=== PATIENT | male | born 1965 | race Caucasian/White ===

== ENCOUNTER 2018-05-08 17:29 | Inpatient (IN) | payer MEDICAID ==
[~2018-05-08] VITALS: Ht 190.5 cm; Wt 121.1 kg
[~2018-05-08 17:29] MED LIST: DIVA500T52 PO; DSS100 PO; FLUO-191 PO; MUPI1OIN4 NS; NALT50TA6 PO; OLAN10TA22 PO; OMEP20 PO; RIVA20TA PO
[2018-05-08 19:10] VITALS: BP 132/84
[2018-05-08] MEDS ORDERED: PNEUMOCOCCAL VACCINE POLYVALENT 0.5 ML VIAL [PPSV23] IM ONE (20:45)
[2018-05-08] MEDS ORDERED: ZOLPIDEM TARTRATE 10 MG TABLET PO PRN (23:00)
[2018-05-08] MEDS ORDERED: HALOPERIDOL 5 MG TABLET PO PRN (23:00)
[2018-05-09 04:05] VITALS: BP 123/70
[2018-05-09] MEDS: LORazepam 2 MG TABLET PO PRN (04:42)
[2018-05-09] MEDS ORDERED: PETROLATUM,WHITE 71 GM JELLY TP PRN (06:30)
[2018-05-09] MEDS ORDERED: ALBUTEROL SULFATE HFA 90 MCG/PUFF 8 GM INHALER IH PRN (06:30)
[2018-05-09] MEDS ORDERED: MAG HYDROX/AL HYDROX/SIMETH ES 30 ML SUSPENSION UDCUP PO PRN (06:30)
[2018-05-09] MEDS ORDERED: GuaiFENesin/D-METHORPHAN [SUGAR-FREE] 200-20MG/10 ML SYRUP UDCUP PO PRN (06:30)
[2018-05-09] MEDS ORDERED: ONDANSETRON HCL 4 MG TABLET PO PRN (06:30)
[2018-05-09] MEDS ORDERED: CloNIDine HCL 0.1 MG TABLET PO PRN (06:30)
[2018-05-09] MEDS ORDERED: LOPERAMIDE HCL 2 MG CAPSULE PO PRN (06:30)
[2018-05-09] MEDS ORDERED: MAGNESIUM HYDROXIDE SUSPENSION 30 ML UDCUP PO PRN (06:30)
[2018-05-09] MEDS ORDERED: DOCUSATE SODIUM 100 MG CAPSULE PO PRN (06:30)
[2018-05-09] MEDS ORDERED: IBUPROFEN 400 MG TABLET PO PRN (06:30)
[2018-05-09] MEDS ORDERED: ACETAMINOPHEN 325 MG TABLET PO PRN (06:30)
[2018-05-09] MEDS: FLUoxetine HCL 20 MG CAPSULE PO SCH (14:02)
[2018-05-09 17:06] VITALS: BP 118/77
[2018-05-09] MEDS: GABAPENTIN 400 MG CAPSULE PO SCH (17:48)
[2018-05-09] MEDS: ZIPRASIDONE HCL 20 MG CAPSULE PO SCH (17:48)
[2018-05-09] MEDS ORDERED: DENTURE ADHESIVE 68 GM CREAM DT PRN (18:45)
[2018-05-09] MEDS ORDERED: DENTURE CLEANSER TABLET [8'S] DT PRN (18:45)
[2018-05-09] MEDS: RIVAROXABAN 20 MG TABLET PO SCH (21:25)
[2018-05-10 06:46] VITALS: BP 121/78
[2018-05-10] MEDS: ZIPRASIDONE HCL 20 MG CAPSULE PO SCH ×2 (06:57→16:54)
[2018-05-10 08:09] LABS: BASOPHILS % (AUTO) 0.4 % (0.0-2.0); HEMATOCRIT 40.5 % (41-53); HEMOGLOBIN 13.5 g/dL (13.5-17.5); LYMPHOCYTES # (AUTO) 1.6 K/uL (1.0-4.8); LYMPHOCYTES % (AUTO) 26.4 % (22.0-44.0); MEAN CORPUSCULAR HGB CONC 33.4 G/dL (31.0-37.0); MEAN CORPUSCULAR VOLUME 87 fL (80-100); MONOCYTES # (AUTO) 0.5 K/uL (0.1-1.0); MONOCYTES % (AUTO) 8.1 % (2.0-9.0); NEUTROPHILS # (AUTO) 3.6 K/uL (1.8-7.7); NEUTROPHILS % (AUTO) 60.1 % (40.0-70.0); PLATELET COUNT (AUTO) 231 K/uL (150-450); RED BLOOD CELL COUNT(AUTO) 4.67 MIL/uL (4.50-5.90); RED CELL DISTRIBUTION WIDTH 15.3 % (11.5-14.5)
[2018-05-10] MEDS: FLUoxetine HCL 20 MG CAPSULE PO SCH (08:26)
[2018-05-10] MEDS: OMEPRAZOLE 20 MG CAPSULE PO SCH (08:26)
[2018-05-10] MEDS: GABAPENTIN 400 MG CAPSULE PO SCH ×3 (08:26→16:54)
[2018-05-10] MEDS: DOCUSATE SODIUM 100 MG CAPSULE PO SCH (08:27)
[2018-05-10 08:39] LABS: HEMOGLOBIN A1C 5.8 % (4.5-6.2)
[2018-05-10 08:53] LABS: ALANINE AMINOTRANSFERASE 30 U/L (12-78); ALBUMIN 2.8 g/dL (3.4-5.0); ALKALINE PHOSPHATASE 96 U/L (46-116); ANION GAP 6 mmol/L (8-16); ASPARTATE AMINOTRANSFERASE 26 U/L (15-37); BILIRUBIN,TOTAL 0.3 mg/dL (0.1-1.0); CALCIUM, TOTAL 9.2 mg/dL (8.8-10.5); CARBON DIOXIDE 28 mmol/L (22-29); CHLORIDE 103 mmol/L (98-107); CHOL/HDL RATIO 3.9 (4.2-7.3); CHOLESTEROL 139 mg/dL (131-200); CREATININE 1.11 mg/dL (0.60-1.30); FREE T4 (FREE THYROXINE) 0.79 ng/dL (0.76-1.46); GLOMERULAR FILTR. RATE CALC > 60 mL/min (>60); GLUCOSE,RANDOM 103 mg/dL (70-110); HDL CHOLESTEROL 36 mg/dL (40-60); LDL CHOL (CALC.) 78 mg/dL (0-130); POTASSIUM 3.9 mmol/L (3.5-5.1); SODIUM SERUM 137 mmol/L (136-145); THYROID STIMULATING HORMONE 0.84 uIU/mL (0.36-3.74); TOTAL PROTEIN, SERUM 6.7 g/dL (6.4-8.2); TRIGLYCERIDES 126 mg/dL (15-150); UREA NITROGEN, BLOOD 19 mg/dL (7-18)
[2018-05-10 12:39] VITALS: BP 123/87
[2018-05-10] MEDS: RIVAROXABAN 20 MG TABLET PO SCH (16:54)
[2018-05-11 00:43] VITALS: BP 119/79
[2018-05-11] MEDS: ZIPRASIDONE HCL 20 MG CAPSULE PO SCH ×3 (06:33→17:13)
[2018-05-11] MEDS: DOCUSATE SODIUM 100 MG CAPSULE PO SCH (08:29)
[2018-05-11] MEDS: GABAPENTIN 400 MG CAPSULE PO SCH ×3 (08:30→17:13)
[2018-05-11] MEDS: FLUoxetine HCL 20 MG CAPSULE PO SCH ×2 (08:30→09:00)
[2018-05-11] MEDS: OMEPRAZOLE 20 MG CAPSULE PO SCH (08:30)
[2018-05-11] MEDS: LORazepam 2 MG TABLET PO PRN (12:49)
[2018-05-11 16:03] VITALS: BP 118/87
[2018-05-11] MEDS: RIVAROXABAN 20 MG TABLET PO SCH (17:13)
[2018-05-12 06:16] VITALS: BP 112/72
[2018-05-12] MEDS: ZIPRASIDONE HCL 20 MG CAPSULE PO SCH (07:02)
[2018-05-12] MEDS: GABAPENTIN 400 MG CAPSULE PO SCH (08:33)
[2018-05-12] MEDS: FLUoxetine HCL 20 MG CAPSULE PO SCH (08:37)
[2018-05-12] MEDS: OMEPRAZOLE 20 MG CAPSULE PO SCH (08:37)
[2018-05-12] MEDS: DOCUSATE SODIUM 100 MG CAPSULE PO SCH (08:37)
[2018-05-12 08:43] VITALS: BP 105/68
[2018-05-12] MEDS ORDERED: ZIPR20CA2 PO (11:48)
[2018-05-12] MEDS ORDERED: GABA-533 PO (11:48)
== END 2018-05-12 13:00 | disposition home or self-care (01) | DRG 750 ==
LOC: B2S 23:05
PROVIDERS: ADMIT Psychiatry & Neurology Psychiatry; ATTEND Psychiatry & Neurology Psychiatry
DX: F25.0 Schizoaffective disorder, bipolar type (principal); G40.909 Epilepsy, unspecified, not intractable, without status epilepticus; R45.851 Suicidal ideations; F15.90 Other stimulant use, unspecified, uncomplicated; F17.200 Nicotine dependence, unspecified, uncomplicated; F41.9 Anxiety disorder, unspecified; J44.9 Chronic obstructive pulmonary disease, unspecified; K21.9 Gastro-esophageal reflux disease without esophagitis; K59.00 Constipation, unspecified; Z86.718 Personal history of other venous thrombosis and embolism; Z91.19 Patient's noncompliance with other medical treatment and regimen; Z91.5 Personal history of self-harm
CPT/HCPCS: 83036; 84439; 84443; 86592